=== PATIENT | female | born 1980 | race Two or more races ===

== ENCOUNTER 2024-10-20 05:13 | Emergency (ER) | payer OTHER, SELFPAY ==
--- NOTE | 2024-10-20 05:18 | PD.EDRME ---
Rapid Medical Screening Exam RME Arrival date/time: 10/20/24 05:13 44 year old female present to ED for c/o of hematuria, I have greeted and performed a focused initial assessment of this patient. A comprehensive ED assessment and evaluation of the patient, analysis of all test results, and completion of the medical decision making process will be conducted by additional ED providers. Chief Complaint: Urogenital-Female Time Seen by Provider: 10/20/24 05:16
[2024-10-20 05:21] VITALS: BP 130/86; PULSE 107; RESP 17; TEMP 36.7; O2SAT 97
--- NOTE | 2024-10-20 05:24 | XR_ITS ---
Examination: CT abdomen and pelvis without contrast. Coronal 3-D reconstructions. Sagittal 2-D reconstructions. Date and time of exam:October 20, 2024 0720 hrs. Indications: Episodes of gross hematuria and frequent urination beginning 2 days ago CTDI: vol (mGy): 10.4 DLP: (mGycm): 528 Technique: Axial images of the abdomen have been obtained, 3 mm slice thickness Intravenous contrast material has not been administered. Low dose protocols were performed. One or more of the following dose reduction techniques were used; automated exposure control, adjustment of the mA and/or KV according to patient size, use of iterative reconstruction technique. Findings: Liver mildly irregular in contour with diffuse fatty infiltration No gallstones Spleen is not enlarged No pancreatic mass 17 mm fat-containing adrenal nodule Moderate renal parenchymal scar formation No renal or ureteral calculi, no hydronephrosis 8mm fat-containing umbilical hernia Absent appendix No bowel obstruction Retroverted uterus with mildly irregular contours No adnexal mass No bladder mass or bladder calculi Fat-containing left femoral hernia Mild disc narrowing L5-S1 Impression: 17 mm left adrenal adenoma Moderate bilateral renal parenchymal scar formation No renal or ureteral calculi, no hydronephrosis Absent appendix Mildly irregular contour uterine fundus, consider pelvic sonography follow-up No bladder mass or bladder calculi
[2024-10-20] MEDS: KETOROLAC INJ 60 MG/2 ML VIAL 30 MG IM (05:29)
[2024-10-20 05:38] LABS: Collection Type, Urine Voided
[2024-10-20 05:54] LABS: Bilirubin,Urine Negative (Negative); Blood,Urine 3+ (Negative); Clarity,Urine Turbid (Clear/Hazy); Color,Urine Colorless (Lt Yel-Yel); Glucose, Urine Negative (Negative); Ketones,Urine Negative (Negative); Leukocyte Esterase,Urine Positive (Negative); Nitrite,Urine Negative (Negative); PH,Urine 6.5 (5.0-7.0); Protein,Urine 1+ (Neg - Trace); RBC,Urine 27 /hpf (0-3); Specific Gravity,Urine 1.004 (1.001-1.035); Squamous Epithelial Cell,Urine 1 /hpf (0-5); Urobilinogen,Urine Negative mg/dL (0.0-1.0); WBC,Urine 183 /hpf (0-5)
[2024-10-20 06:13] LABS: Basophils # (Auto) 0.1 Thou/mm3 (0.0-0.2); Basophils % (Auto) 1 % (0-2.5); Eosinophils # (Auto) 0.8 Thou/mm3 (0.0-0.5); Eosinophils % (Auto) 5 % (0-10); Hematocrit 46.2 % (36.0-46.0); Hemoglobin 15.4 g/dL (12.0-16.0); Immature Granulocytes % (Auto) 0 % (0-0); Immature Granulocytes Auto 0.05 Thou/mm3 (0.00-0.00); Lymphocytes # (Auto) 4.4 Thou/mm3 (1.0-4.8); Lymphocytes % (Auto) 30 % (10-50); Mean Corpuscular HGB Conc 33.3 g/dl (31.0-37.0); Mean Corpuscular Hemoglobin 30.9 pg (25.0-35.0); Mean Corpuscular Volume 93 fL (80-100); Monocytes # (Auto) 0.8 Thou/mm3 (0.0-0.8); Monocytes % (Auto) 5 % (0-12); Neutrophils # (Auto) 8.7 Thou/mm3 (1.8-7.7); Neutrophils % (Auto) 59 % (37-80); Nucleated Red Blood Cell % 0 /100 WBC (0); Platelet Count 312 Thou/mm3 (140-440); RDW Standard Deviation 43.5 fL (36.4-46.3); Red Blood Count 4.98 Miln/mm3 (4.00-5.20); White Blood Count 14.8 Thou/mm3 (3.6-11.0)
[2024-10-20 06:25] LABS: Alanine Aminotransferase 28 U/L (10-49); Albumin, Serum 4.8 gm/dL (3.5-5.0); Albumin/Globulin Ratio 1.7 (1.2-2.2); Alkaline Phosphatase 95 U/L (46-116); Anion Gap 8 (7-16); Aspartate Amino Transferase 21 U/L (0-34); BUN/Creatinine Ratio 14 Ratio (12-20); Bilirubin,Total 0.2 mg/dL (0.3-1.2); Blood Urea Nitrogen 10 mg/dL (9-23); Calcium 10.1 mg/dL (8.3-10.6); Calcium (Corrected) 10.1 mg/dL (8.5-10.1); Carbon Dioxide 25.7 mMol/L (20.0-31.0); Chloride 106 mMol/L (98-107); Creatinine (Component) 0.7 mg/dL (0.6-1.3); Globulin 2.8 gm/dL (2.3-3.5); Glucose 107 mg/dL (74-106); Lipase 67 U/L (12-53); Osmolality,Calculated 278 (275-295); Potassium 4.2 mMol/L (3.4-5.1); Sodium 140 mMol/L (136-145); Total Protein 7.6 gm/dL (5.7-8.2); eGFR > 60 See Note
[2024-10-20 07:09] LABS: HCG,Qualitative Serum Negative
[2024-10-20 08:36] VITALS: BP 134/84; PULSE 92; RESP 15; TEMP 36.7; O2SAT 100
--- NOTE | 2024-10-20 09:09 | PD.EDFMALE ---
ED Female Urogenital RME/HPI General Chief complaint: Urogenital-Female Stated complaint: URINATING BLOOD Time Seen by Provider: 10/20/24 05:16 Arrival date/time: 10/20/24 05:13 RME / HPI RME / HPI Narrative: 10/20/24 05:13 44 year old female present to ED for c/o of hematuria, I have greeted and performed a focused initial assessment of this patient. A comprehensive ED assessment and evaluation of the patient, analysis of all test results, and completion of the medical decision making process will be conducted by additional ED providers. DR. RY GARDINER ED EVALUATION 44 year old female with no stated medical history presents to the ED for evaluation of urinary frequency, urinary urgency, and urinary hesitancy beginning 2 days ago. Reportedly was up ~ 20 times last night with the urge to urinate. Denies any fevers, chills, sweats, abdominal pain, nausea, or vomiting. No other associated symptoms or complaints. Related Data Previous Rx's ?Medication ?Instructions ?Recorded nitrofurantoin 100 mg PO Q12H 5 days #10 caps 10/20/24 monohydrate/macrocrystals 100 mg capsule (Macrobid) Allergies Allergy/AdvReac Type Severity Reaction Status Date / Time tioconazole Allergy Hives Verified 10/20/24 05:17 [From Monistat 1 (tioconazole)] Review of Systems Review of Systems Narrative Review of Systems: Gen: No fever, no chills, no weight loss EYES: No discharge, no visual changes, no pain HEENT: No ear pain, no congestion, no sore throat PULM: no shortness of breath, no cough, no congestion CV: No chest pain, no dyspnea on exertion, no palpitations, no chest tightness GI: No nausea, no vomiting, no diarrhea, no pain, no constipation : + frequency, + urgency,? 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 MMM. EOMI, clear conjunctiva, oropharynx clear. NECK: Supple without lymphadenopathy. No stiffness or restricted ROM. HEART: Normal rate and regular rhythm, normal S1/S1, no m/r/g LUNGS: CTAB, moving air well. No crackles or wheezes are heard. ABDOMEN: Soft, nontender, nondistended with good bowel sounds heard. BACK: No midline C/T/L spine pain or deformity, No CVAT, no obvious deformity. EXTREMITIES: Without cyanosis, clubbing or edema. MUSCULOSKELETAL: FROM of all major joints, no chest tenderness NEUROLOGICAL: Grossly nonfocal. Alert and oriented, moving all 4 extremities. CN not formally tested but appear grossly intact. Skin: Warm and dry without any rash. Course Quality Measures none Orders Category Date Time Status CT abdomen pelvis wo con Stat Exams 10/20/24 05:24 Completed CBC Stat Lab 10/20/24 05:35 Completed CMP [Comprehensive Metabolic Panel] Stat Lab 10/20/24 05:35 Completed HCG,Qualitative Serum Stat Lab 10/20/24 05:35 Completed Lipase Stat Lab 10/20/24 05:35 Completed UA [Urinalysis] Stat Lab 10/20/24 05:20 Completed Ketorolac Inj [Toradol Inj] Med 10/20/24 05:25 Discontinued 30 mg IM X1 ONE Vital Signs Vital signs: Vital Signs Temperature 98.1 F 10/20/24 05:21 Pulse Rate 107 H 10/20/24 05:21 Respiratory Rate 17 10/20/24 05:21 Blood Pressure 130/86 H 10/20/24 05:21 Pulse Oximetry (%) 97 10/20/24 05:21 Oxygen Delivery Method Room Air 10/20/24 05:21 Pulse ox is 97% on room air which is adequate. Urogenital - Female MDM Narrative MDM Narrative:: Sara Calvillo am scribing for and in the presence of Dr. Seymour. Patient data External records reviewed:: [facility] previous records (I reviewed ED visit on 05/05/2022) Clinical information provided by:: patient Social determinants that could affect healthcare access:: none Patient has the following chronic illnesses:: None How is presenting disease/condition affected by chronic disease/condition?: no chronic disease Evaluation data The following diagnostics were reviewed and interpreted by me:: lab results and radiology exam(s) Lab and/or radiology exams considered but not ordered:: None Interpretation Summary: Ordering Physician: Miguel Eisenberg PA-C Date of Service: 10/20/24 Procedure(s): CT abdomen pelvis wo con Accession Number(s): [id number] cc: Gregg Perez MD; NO PRIMARY/FAMILY,PHYSICIAN; Miguel Eisenberg PA-C~ Examination: CT abdomen and pelvis without contrast. Coronal 3-D reconstructions. Sagittal 2-D reconstructions. Date and time of exam:October 20, 2024 0720 hrs. Indications: Episodes of gross hematuria and frequent urination beginning 2 days ago CTDI: vol (mGy): 10.4 DLP: (mGycm): 528 Technique: Axial images of the abdomen have been obtained, 3 mm slice thickness Intravenous contrast material has not been administered. Low dose protocols were performed. One or more of the following dose reduction techniques were used; automated exposure control, adjustment of the mA and/or KV according to patient size, use of iterative reconstruction technique. Findings: Liver mildly irregular in contour with diffuse fatty infiltration No gallstones Spleen is not enlarged No pancreatic mass 17 mm fat-containing adrenal nodule Moderate renal parenchymal scar formation No renal or ureteral calculi, no hydronephrosis 8mm fat-containing umbilical hernia Absent appendix No bowel obstruction Retroverted uterus with mildly irregular contours No adnexal mass No bladder mass or bladder calculi Fat-containing left femoral hernia Mild disc narrowing L5-S1 Impression: 17 mm left adrenal adenoma Moderate bilateral renal parenchymal scar formation No renal or ureteral calculi, no hydronephrosis Absent appendix Mildly irregular contour uterine fundus, consider pelvic sonography follow-up No bladder mass or bladder calculi Dictated By: Gregg Perez MD Signed By: <Electronically signed by Gregg Perez MD in OV> 10/20/24 0753 Medications / Prescriptions Medications or Prescriptions considered but not ordered:: None Medication administrations:: Medication Administration History Discontinued Medications Ketorolac Tromethamine (Ketorolac Inj 60 Mg/2 Ml Vial) 30 mg IM X1 ONE Stop: 10/20/24 05:26 Last Admin: 10/20/24 05:29 Dose: 30 mg Documented By: CVL See above Consultations Consultation(s) initiated? (list below): No Diagnosis Urogenital Female Differential Diagnosis: urinary tract infection, cystitis and other (Pyelonephritis ) Most likely diagnosis given after review of the tests above:: Cystitis Admission Indicated Admission indicated?: not indicated Admission Request Was there a request for admission?: No Disposition Plan Disposition Plan: Discharge Discharge Attestation Discharge Attestation: The patient and all family members were given an opportunity to ask questions and understood the discharge instructions. Discharge instructions specifically effects, indications for sooner follow up or return to the emergency department, and the expected course of current diagnosis. Patient condition: Stable Discharge Plan Plan Patient Disposition: HOME (Self Care) Prescriptions/Referrals Prescriptions/Med Rec: New nitrofurantoin monohyd/m-cryst [Macrobid] 100 mg capsule 100 mg PO Q12H 5 Days Qty: 10 0RF Rx Instructions: must administer with a meal/food Referrals: No Primary/Family,Physician [Primary Care Provider] - In 1 week Problem List Clinical Impression: Cystitis Patient/Caregiver Discharge Instructions Education Materials: ED CYSTITIS Female Adult Additional Instructions: You can take [id number] Pyridium as needed for your urinary symptoms. Antibiotics have been sent to the pharmacy please take as prescribed. Follow-up with your primary care doctor in 2 to 3 days for recheck. You can return to the emerged department sooner symptoms worsen or if notes any new, concerning issues. Print Language: Polish Stand Alone Forms: Jeannine Award Info., Patient Portal Info Letter
--- NOTE | 2024-10-20 09:15 | CHAP ---
Patient expressed gratitude for visit and prayer.
== END 2024-10-20 09:30 | disposition home or self-care (01) ==
PROVIDERS: Physician Assistant; Emergency Provider Emergency Medicine
DX: N30.91 Cystitis, unspecified with hematuria (principal)
CPT/HCPCS: 36415; 74176; 80053; 81001; 83690; 84703; 85025; 96372; 99284; J1885